=== PATIENT | female | born 1995 | race African-American/Black ===

== ENCOUNTER 2017-08-14 12:41 | Emergency (ER) | payer OTHER ==
[~2017-08-14] VITALS: Ht 154.9 cm; Wt 64.1 kg
[2017-08-14 12:43] VITALS: TEMP 97
[2017-08-14 15:12] VITALS: BP 116/78; PULSE 89
== END 2017-08-14 15:13 | disposition home or self-care (01) ==
LOC: COL.ER 12:41
DX: S16.1XXA Strain of muscle, fascia and tendon at neck level, initial encounter (principal); V49.9XXA Car occupant (driver) (passenger) injured in unspecified traffic accident, initial encounter; F17.210 Nicotine dependence, cigarettes, uncomplicated
CPT/HCPCS: J1885